=== PATIENT | female | born 1995 | race Caucasian/White ===

== ENCOUNTER → 2022-02-26 | Outpatient (CLI) | payer BC | END | disposition home or self-care (01) | LOC: US 09:38 | PROVIDERS: ATTEND Obstetrics & Gynecology | DX: Z34.92 Encounter for supervision of normal pregnancy, unspecified, second trimester (principal); Z3A.16 16 weeks gestation of pregnancy | CPT/HCPCS: 76805 ==

== ENCOUNTER → 2022-04-16 | Outpatient (CLI) | payer BC | END | disposition home or self-care (01) | LOC: US 13:07 | PROVIDERS: ATTEND Obstetrics & Gynecology | DX: Z34.92 Encounter for supervision of normal pregnancy, unspecified, second trimester (principal); Z3A.24 24 weeks gestation of pregnancy | CPT/HCPCS: 76805 ==